=== PATIENT | female | born 1965 | race Caucasian/White ===

== ENCOUNTER → 2017-02-14 | Outpatient (CLI) | payer BC ==
--- NOTE | 2017-02-15 08:44 | WWPN ---
DATE OF ADMISSION: 02/14/2017 CHIEF COMPLAINT: Pelvic pain with intercourse since 10/28. HPI: This is a 51-year-old G4, P3-0-1-3 with an LMP of 1995. She is status post vaginal hysterectomy for benign reasons. She states she has been having pelvic pain with intercourse since 10/2016. She states it mostly centrally located and is not only with deep penetration but with shallow penetration as well. She says this feels different than just been dry. She says there is a lot of pressure and feels like he cannot go any further and they typically have to stop with sexual activity. She did try a lubricant without improvement. She states she usually does not have pelvic pain when she is not being sexually active. She is also complaining of worsening hot flashes over the past year. She has had hot flashes for a few years but they have gotten much worse recently. She has tried taking magnesium to see if this helps but there has been minimal improvement. She does get up frequently at night because of hot flashes and night sweats and this is causing some problems for her because she is not sleeping well. REVIEW OF SYSTEMS: She denies respiratory, cardiac, or GI problems. She also denies any urinary tract infection symptoms. She occasionally does have a small amount of leakage when she coughs. This is not new for her. PHYSICAL EXAM: Blood pressure 113/66. Height 5 feet 1 inch. Weight 150 pounds. Temperature 96.3, pulse 94. This is a well-developed, well-nourished white female who is alert and oriented x3 in no acute distress. CHEST AND LUNGS: Clear to auscultation. HEART: Regular rhythm. ABDOMEN: Soft, nontender, without palpable masses. PELVIC EXAM: Normal external genitalia with no significant atrophy. Vagina appears normal. No unusual vaginal discharge. There is no evidence of prolapse. Bimanual exam: There is moderate left adnexal tenderness with deep palpation. There is mild mid pelvic tenderness and no significant right pelvic tenderness. There are no palpable pelvic masses. IMPRESSION: 1. 51-year-old perimenopausal female with three month history of dyspareunia. She does have tenderness greatest on the left side, without palpable mass. 2. Worsening vasomotor symptoms probably due to the menopausal change. 3. She is status post vaginal hysterectomy for benign reasons. PLAN: 1. The patient will be scheduled for a pelvic ultrasound. 2. We have also had a long discussion regarding her worsening vasomotor symptoms associated with menopause change. We discussed various options, including low-dose ERT, SSRI treatment, clonidine treatment and [id number] supplements. She would like a trial of ERT. We have discussed the [facility] study findings including the possible increased risk for stroke and blood clots. A prescription for Estrace 0.5 mg tablets which she will take 1 daily. She will wait until after evaluation with her ultrasound first and then begin the ERT at that time. 3. She will return in August for her annual examination and p.r.n.
== END ==
LOC: WWCWWP 14:02
PROVIDERS: ATTEND Obstetrics & Gynecology

== ENCOUNTER → 2017-03-03 | Outpatient (CLI) | payer BC ==
--- NOTE | 2017-03-03 18:48 | US ---
EXAMINATION TYPE: US pelvic complete DATE OF EXAM: 03/03/2017 5:26 PM COMPARISON: NONE CLINICAL HISTORY: Dyspareunia N94.1. Dyspareunia x 4 months, pt had hysterectomy at age 26 TECHNIQUE: Transabdominal (TA) Date of LMP: age 26 EXAM MEASUREMENTS: Uterus: Surgically absent cm Endometrial Stripe: Surgically absent cm Right Ovary: 1.9 x 1.6 x 1.4 cm Left Ovary: 2.7 x 2.3 x 2.3 cm Pt stated bladder felt full, did not want TV at this time 1. Uterus: Surgically absent 2. Endometrium: Surgically absent 3. Right Ovary: wnl 4. Left Ovary: wnl 5. Bilateral Adnexa: wnl 6. Posterior cul-de-sac: wnl No abnormality visualized to account for pt's symptoms, alot of bowel within pelvis causing shadowi ng IMPRESSION: No free fluid. No evidence of solid or cystic pelvic mass.
== END | disposition home or self-care (01) ==
LOC: RADUSWWP 16:23
PROVIDERS: ATTEND Obstetrics & Gynecology
DX: N94.10 Unspecified dyspareunia (principal); R10.2 Pelvic and perineal pain
CPT/HCPCS: 76856

== ENCOUNTER → 2017-05-19 | Outpatient (CLI) | payer BC ==
--- NOTE | 2017-05-19 15:40 | US ---
EXAMINATION TYPE: US transvaginal DATE OF EXAM: 05/19/2017 COMPARISON: Previous study dated 03/03/2017. CLINICAL HISTORY: N94.1 Dyspareunia. hysterectomy at 32 years of age, LLQ pain TECHNIQUE: Transvaginal (TV) Date of LMP: at age 32 EXAM MEASUREMENTS: Uterus: Surgically absent cm Endometrial Stripe: Surgically absent cm Right Ovary: 3.3 x 1.4 x 2.9 cm Left Ovary: 2.8 x 1.6 x 2.3 cm 1. Uterus: Surgically absent 2. Endometrium: Surgically absent 3. Right Ovary: wnl 4. Left Ovary: wnl 5. Bilateral Adnexa: wnl 6. Posterior cul-de-sac: no free fluid IMPRESSION: NORMAL POSTHYSTERECTOMY PELVIS.
== END | disposition home or self-care (01) ==
LOC: RADUSWWP 14:58
PROVIDERS: ATTEND Obstetrics & Gynecology
DX: N94.10 Unspecified dyspareunia (principal); Z90.710 Acquired absence of both cervix and uterus
CPT/HCPCS: 76830

== ENCOUNTER → 2018-06-16 | Outpatient (CLI) | payer BC ==
[2018-06-16 16:48] LABS: Rheumatoid Factor 6 IU/mL (0-15)
--- NOTE | 2018-06-16 20:12 | XR ---
EXAMINATION TYPE: XR hand complete bilateral DATE OF EXAM: 06/16/2018 COMPARISON: None HISTORY: Pain TECHNIQUE: Three-view left hand FINDINGS: No acute fractures are evident. Joint spaces are preserved. Soft tissues are normal. IMPRESSION: 1. Normal three-view left hand. 2. Follow-up exam can be performed 7-10 days from acute trauma for.
[2018-06-16 21:22] LABS: Anti-DNA, DS unit <1.0 IU/mL; DNA Double-Stranded NEGATIVE (NEGATIVE)
[2018-06-18 09:45] LABS: HLA B27 NEGATIVE
== END | disposition home or self-care (01) ==
LOC: LABWHC1 10:07
PROVIDERS: ATTEND Family Medicine
DX: M79.641 Pain in right hand (principal); M79.642 Pain in left hand; M06.9 Rheumatoid arthritis, unspecified; M54.2 Cervicalgia
CPT/HCPCS: 36415; 85652; 86038; 86225; 86431; 86812

== ENCOUNTER → 2019-07-25 | Outpatient (CLI) | payer BC ==
--- NOTE | 2019-07-25 11:13 | XR ---
EXAMINATION TYPE: XR Hip Bilateral Complete DATE OF EXAM: 07/25/2019 CLINICAL HISTORY: Bilateral hip pain. TECHNIQUE: AP and frogleg views of the bilateral hips are obtained. COMPARISON: None. FINDINGS: There is no acute fracture/dislocation evident in either hip. The joint space in the bila teral hips appears symmetric and felt within normal limits. Scattered pelvic phleboliths are present bilaterally. There may be some asymmetric right sacroiliac joint narrowing and sclerosis, correlate c linically for sacroiliitis. IMPRESSION: As above.
== END | disposition home or self-care (01) ==
LOC: LABWHC1 09:15
PROVIDERS: ATTEND Family Medicine
DX: I87.8 Other specified disorders of veins (principal)
CPT/HCPCS: 73521

== ENCOUNTER → 2019-08-22 | Outpatient (CLI) | payer BC ==
--- NOTE | 2019-08-22 13:11 | MR ---
EXAMINATION TYPE: MR lumbar spine wo con DATE OF EXAM: 08/22/2019 COMPARISON: NONE HISTORY: Pain radiating into hips and legs TECHNIQUE: Multiplanar, multisequence imaging of the lumbar spine is performed without IV contrast. FINDINGS: Sagittal images of the lumbar spine show vertebral body heights to appear satisfactory. Sli ght grade 1 anterolisthesis L4 on L5. The multilevel disc desiccation with relative sparing of L1-L2 and L3-L4 levels as there is mild disc space narrowing L2-L3 and L4-L5 level noted. The conus medull efra is normal in position and signal ending mid L1 level. Several scattered Schmorl nodes in the upp er sacrum with largest noted at S2 level sagittal image 6 measuring 1.8 cm long axis. Mild multilevel anterior spurring. The bone marrow signal intensity is within normal limits. Axial images show the T12-L1 and L1-L2 levels to appear within normal limits. Axial images at the L2-L3 level show mild broad disc bulge with right lateral disc protrusion compone nt effacing intrathecal sac and causing mild to moderate right-sided anterior inferior neural foramin al narrowing. Axial images at the L3-L4 level show mild facet degenerative changes bilaterally. Axial images at L4-L5 level show moderate to advanced facet degenerative changes and ligament flavum hypertrophy with spondylolisthesis and broad-based posterior disc protrusion minimally effacing anter ior thecal sac. There is [id number] bilaterally into inferior neural foraminal narrowing. Axial images at the L5-S1 level show moderate facet degenerative changes bilaterally. There is centra l disc protrusion with spinal canal is preserved. Bilateral neural foramina are patent. No suspicious incidental retroperitoneal findings are seen. IMPRESSION: Multilevel degenerative changes in the lumbar spine most prominent at L4-L5 level as deta iled above.
== END | disposition home or self-care (01) ==
LOC: RADMRIMAIN 09:12
PROVIDERS: ATTEND Family Medicine
DX: M48.061 Spinal stenosis, lumbar region without neurogenic claudication (principal); M99.73 Connective tissue and disc stenosis of intervertebral foramina of lumbar region; M43.16 Spondylolisthesis, lumbar region; M51.26 Other intervertebral disc displacement, lumbar region; M47.816 Spondylosis without myelopathy or radiculopathy, lumbar region
CPT/HCPCS: 72148

== ENCOUNTER → 2020-04-27 | Outpatient (CLI) | payer BC ==
--- NOTE | 2020-04-28 11:58 | MM ---
Reason for exam: screening (asymptomatic). Last mammogram was performed 3 years and 8 months ago. History: Patient history of other cancer. Family history of breast cancer in maternal cousin at age 40. Cyst aspiration of the left breast, 2014. Taking estrogen for 2 years. Taking progesterone for 2 years. Physical Findings: A clinical breast exam by your physician is recommended on an annual basis and results should be correlated with mammographic findings. MG Screening Mammo w CAD Bilateral CC and MLO view(s) were taken. Prior study comparison: August 30, 2016, bilateral MG diagnostic mammo w CAD [facility]. August 24, 2015, bilateral MG diagnostic mammo w CAD [facility]. The breast tissue is heterogeneously dense. This may lower the sensitivity of mammography. Focal asymmetry lower left MLO view. ASSESSMENT: Incomplete: need additional imaging evaluation, BI-RAD 0 RECOMMENDATION: Special view mammogram of the left breast. If lesion persists on supplemental views, image directed ultrasound is recommended. [facility] will attempt to contact patient to return for supplemental views and ultrasound if indicated.
== END | disposition home or self-care (01) ==
LOC: RADMAMWWP 07:25
PROVIDERS: ATTEND Family Medicine
DX: Z12.31 Encounter for screening mammogram for malignant neoplasm of breast (principal); Z80.3 Family history of malignant neoplasm of breast
CPT/HCPCS: 77067

== ENCOUNTER → 2020-05-01 | Outpatient (CLI) | payer BC ==
--- NOTE | 2020-05-04 08:23 | MM ---
Reason for exam: additional evaluation requested from abnormal screening. Last mammogram was performed less than 1 month ago. History: Patient history of other cancer. Family history of breast cancer in maternal cousin at age 40. Took hormonal contraceptives for 8 years. Taking estrogen for 2 years. Physical Findings: Nurse did not find any significant physical abnormalities on exam. MG Work Up Mamm w CAD LT Spot compression CC, spot compression MLO, and ML view(s) were taken of the left breast. Prior study comparison: April 27, 2020, bilateral MG screening mammo w CAD. August 30, 2016, bilateral MG diagnostic mammo w CAD [facility]. There is no discrete abnormality on compression. Asymmetric density on ML view. No significant new findings when compared with previous films. These results were verbally communicated with the patient and result sheet given to the patient on 05/01/20. ASSESSMENT: Probably benign, BI-RAD 3 RECOMMENDATION: Follow-up diagnostic mammogram of the left breast in 6 months.
== END | disposition home or self-care (01) ==
LOC: RADMAMWWP 09:01
PROVIDERS: ATTEND Family Medicine
DX: R92.8 Other abnormal and inconclusive findings on diagnostic imaging of breast (principal)
CPT/HCPCS: 77065

== ENCOUNTER → 2021-04-13 | Outpatient (CLI) | payer BC ==
--- NOTE | 2021-04-13 10:40 | MM ---
Reason for exam: additional evaluation requested from prior study. Last mammogram was performed 11 months ago. History: Patient history of other cancer. Family history of breast cancer in maternal cousin at age 40. Cyst aspiration of the left breast, 2013. Took hormonal contraceptives for 8 years. Taking estrogen for 2 years. Physical Findings: Nurse did not find any significant physical abnormalities on exam. MG Diagnostic Mammo w CAD [facility] Bilateral CC and MLO view(s) were taken. Spot compression MLO and LM view(s) were taken of the left breast. Prior study comparison: May 01, 2020, left breast MG work up mamm w CAD LT. April 27, 2020, bilateral MG screening mammo w CAD. The breast tissue is heterogeneously dense. This may lower the sensitivity of mammography. No significant new findings when compared with previous films. These results were verbally communicated with the patient and result sheet given to the patient on 04/13/21. ASSESSMENT: Probably benign, BI-RAD 3 RECOMMENDATION: Follow-up diagnostic mammogram of the left breast in 6 months.
== END | disposition home or self-care (01) ==
LOC: RADMAMWWP 09:00
PROVIDERS: ATTEND Family Medicine
DX: R92.2 Inconclusive mammogram (principal); Z80.3 Family history of malignant neoplasm of breast
CPT/HCPCS: 77066

== ENCOUNTER → 2021-10-19 | Outpatient (CLI) | payer BC ==
[2021-10-19 19:15] LABS: LDL Cholesterol,Calculated 153.9 mg/dL (0.0-131.0); VLDL Calculation 15.26 mg/dL (5.00-40.00)
== END | disposition home or self-care (01) ==
LOC: LABWHC1 11:12
PROVIDERS: ATTEND Internal Medicine
DX: E78.5 Hyperlipidemia, unspecified (principal)
CPT/HCPCS: 36415; 80061

== ENCOUNTER → 2022-05-25 | Outpatient (CLI) | payer BC ==
--- NOTE | 2022-05-25 10:34 | XR ---
EXAMINATION TYPE: XR cervical spine comp DATE OF EXAM: 05/25/2022 TECHNIQUE: Frontal, lateral, oblique, swimmers, and open mouth view of the cervical spine are obtaine d. HISTORY: R07.0 NECK PAIN arthritis. COMPARISON: Cervical spine x-ray 2013 FINDINGS: The cervical spine is visualized in its entirety from C1 thru the top of T1 level, it is s table and straightened in alignment without evidence of acute fracture or dislocation. The pre-verte bral soft tissue appears within normal limits. The C1-C2 articulation is within normal limits on the open mouth view. Vertebral body heights are maintained. Mild to moderate spurring and disc space na rrowing C5-C6 and C6-C7 levels is slightly more prominent from 2013 study. The oblique images are wit hin normal limits. Overlying soft tissue is unremarkable. IMPRESSION: As above.
--- NOTE | 2022-05-26 07:59 | MM ---
Reason for Exam: Screening (asymptomatic). Last mammogram was performed 1 year(s) and 1 month(s) ago. Patient History: Menarche at age 13. First Full-Term at age 18. Hysterectomy at age 32. Postmenopausal. Other cancer. Patient used Estrogen for 2 years. Patient used Hormonal Contraceptives for 8 years. 2013, Cyst Aspiration on the Left side. Maternal cousin had breast cancer, age 40. Risk Values: Neyda 5 year model risk: 0.8%. NCI Lifetime model risk: 6.0%. Prior Study Comparison: 04/27/2020 Bilateral Screening Mammogram, [facility]. 05/01/2020 Left Diagnostic Mammogram, [facility]. 04/13/2021 Bilateral Diagnostic Mammogram, [facility]. Tissue Density: The breast tissue is heterogeneously dense. This may lower the sensitivity of mammography. Findings: Analyzed By CAD. There is no suspicious group of microcalcifications or new suspicious mass in either breast. Overall Assessment: Negative, BI-RAD 1 Management: Screening Mammogram of both breasts in 1 year. A clinical breast exam by your physician is recommended on an annual basis and results should be correlated with mammographic findings. Electronically signed and approved by: Jarrod Hooker M.D. Radiologis
== END | disposition home or self-care (01) ==
LOC: RADMAMWWP 10:00
PROVIDERS: ATTEND Family Medicine
DX: Z12.31 Encounter for screening mammogram for malignant neoplasm of breast (principal); M50.323 Other cervical disc degeneration at C6-C7 level; Z80.3 Family history of malignant neoplasm of breast
CPT/HCPCS: 72050; 77067

== ENCOUNTER → 2023-02-20 | Outpatient (CLI) | payer BC ==
--- NOTE | 2023-02-20 21:53 | CT ---
EXAMINATION TYPE: CT sinus wo con DATE OF EXAM: 02/20/2023 COMPARISON: None HISTORY: Sinusitis CT DLP: 622.3 mGycm CONTRAST: 0 mL of Isovue 300 The paranasal sinuses are examined in the axial plane at 2 mm thick sections. Reconstructed images i n the coronal plane were obtained. The maxillary sinuses are clear. There may be some debris within posterior right residual ethmoid ai r cells. Significant mucosal thickening is not evident. No suspicious air-fluid levels are present. The sphenoid sinuses are clear. The frontal sinuses are clear. The septum is evaluated. There is septal deviation to the left. There is been prior uncinectomies. IMPRESSIONS: 1. Postsurgical changes with prior uncinectomies and ethmoidectomies. No suspicious changes to sugge st acute or chronic sinusitis. 2. Left septal deviation. 3. There may be some debris within posterior right residual ethmoid air cells.
== END | disposition home or self-care (01) ==
LOC: RADCTMAIN 11:29
PROVIDERS: ATTEND Otolaryngology
DX: J32.9 Chronic sinusitis, unspecified (principal); J34.2 Deviated nasal septum; Z98.890 Other specified postprocedural states
CPT/HCPCS: 70486

== ENCOUNTER → 2023-11-30 | Outpatient (CLI) | payer BC ==
--- NOTE | 2023-12-01 20:22 | MM ---
Reason for Exam: Screening (asymptomatic). Last mammogram was performed 1 year(s) and 6 month(s) ago. Patient History: Menarche at age 13. First Full-Term at age 18. Hysterectomy at age 32. Postmenopausal. Other cancer. Patient used Estrogen for 2 years. Patient used Hormonal Contraceptives for 8 years. 2013, Cyst Aspiration on the Left side. Maternal cousin had breast cancer, age 40. Risk Values: Neyda 5 year model risk: 0.9%. NCI Lifetime model risk: 5.7%. Prior Study Comparison: 05/01/2020 Left Diagnostic Mammogram, [facility]. 04/13/2021 Bilateral Diagnostic Mammogram, [facility]. 05/25/2022 Bilateral MG screening mammo w CAD, [facility]. Tissue Density: The breast tissue is heterogeneously dense. This may lower the sensitivity of mammography. Findings: Analyzed By CAD. There is no suspicious group of microcalcifications or new suspicious mass in either breast. Overall Assessment: Negative, BI-RAD 1 Management: Screening Mammogram of both breasts in 1 year. . Patient should continue monthly self-breast exams. A clinical breast exam by your physician is recommended on an annual basis. This exam should not preclude additional follow-up of suspicious palpable abnormalities. Note on Neyda scores and lifetime risk: 1. A Neyda score greater than 3% is considered moderate risk. If this is the case, consider specialist referral to assess eligibility for a risk reducing agent. 2. If overall lifetime risk for the development of breast cancer is 20% or higher, the patient may qualify for future screening with alternating mammogram and breast MRI. Electronically signed and approved by: Mini Hurtado M.D. Radiologist
== END | disposition home or self-care (01) ==
LOC: RADMAMWWP 14:19
PROVIDERS: ATTEND Family Medicine
DX: Z12.31 Encounter for screening mammogram for malignant neoplasm of breast (principal); Z80.3 Family history of malignant neoplasm of breast; Z78.0 Asymptomatic menopausal state
CPT/HCPCS: 77067

== ENCOUNTER → 2024-08-12 | Outpatient (CLI) | payer BC ==
--- NOTE | 2024-08-12 19:02 | MR ---
EXAMINATION TYPE: MR cervical spine wo con DATE OF EXAM: 08/12/2024 5:53 PM CLINICAL INDICATION: Female, 58 years old with history of M54.12 RADICULOPATHY CERVICAL; PHH, Neck pa n, numbness and tingling in BUE, headaches. COMPARISON: None. TECHNIQUE: Multi planar, multi sequence imaging was performed utilizing: T1-weighted, T2-weighted, an d turbo inversion recovery imaging of the cervical spine. IV Contrast: cc (none if empty) FINDINGS: Alignment: The cervical vertebral bodies have preserved heights. Alignment is within normal limits gi ag patient positioning. Bones: Bone signal is within normal limits. No abnormal bone marrow edema on inversion recovery seque nces. Cord: The spinal cord is unremarkable with regards to their signal intensity and morphology. Discs: Intervertebral disc signal is maintained. C2-C3: No significant disc pathology. The spinal canal is patent. No neural foraminal stenosis. C3-C4: No significant disc pathology. The spinal canal is patent. No neural foraminal stenosis. C4-C5: No significant disc pathology. The spinal canal is patent. Bilateral facet and uncovertebral joint arthropathy are present with mild left and moderate right neural foraminal stenosis. C5-C6: No significant disc pathology. The spinal canal is patent. Bilateral facet and uncovertebral joint arthropathy are present with mild bilateral neural foraminal stenosis. C6-C7: A disc osteophyte complex is present with mild spinal canal stenosis. Bilateral facet and unc overtebral joint arthropathy are present with moderate left neural foraminal stenosis. C7-T1: No significant disc pathology. The spinal canal is patent. No neural foraminal stenosis. Other: None. IMPRESSION: 1. No evidence for disc herniation or significant spinal canal stenosis. 2. Mild disc degeneration with associated osteoarthritic changes. No femoral stenosis worse at C4-C5 with moderate right and moderate left C6-C7 stenosis. [facility], Workstation: [id number], 08/12/2024 7:00 PM
== END | disposition home or self-care (01) ==
LOC: RADMRIMAIN 17:14
PROVIDERS: ATTEND Orthopaedic Surgery
DX: M54.12 Radiculopathy, cervical region
CPT/HCPCS: 72141

== ENCOUNTER → 2024-09-12 | Outpatient (CLI) | payer BC | END | disposition home or self-care (01) | LOC: LABWHC1 12:26 | PROVIDERS: ATTEND Physician Assistant | DX: M25.572 Pain in left ankle and joints of left foot (principal); M79.662 Pain in left lower leg; S92.245D Nondisplaced fracture of medial cuneiform of left foot, subsequent encounter for fracture with routine healing; S93.402D Sprain of unspecified ligament of left ankle, subsequent encounter; S82.392A Other fracture of lower end of left tibia, initial encounter for closed fracture; S82.435D Nondisplaced oblique fracture of shaft of left fibula, subsequent encounter for closed fracture with routine healing | CPT/HCPCS: 36415; 82306 ==

== ENCOUNTER → 2024-12-04 | Outpatient (CLI) | payer BC ==
--- NOTE | 2024-12-04 17:40 | MM ---
Reason for Exam: Screening (asymptomatic). Last screening mammogram was performed 12 month(s) ago. Patient History: Menarche at age 13. First Full-Term at age 18. Hysterectomy at age 32. Postmenopausal. Patient has history of breast feeding. Other cancer. Currently using Estrogen, for 2 years. Patient used Hormonal Contraceptives for 8 years. 2013, Cyst Aspiration on the Left side. Maternal cousin had breast cancer, age 40. Risk Values: Neyda 5 year model risk: 1.0%. NCI Lifetime model risk: 5.6%. Prior Study Comparison: 04/13/2021 Bilateral Diagnostic Mammogram, [facility]. 05/25/2022 Bilateral MG screening mammo w CAD, [facility]. 11/30/2023 Bilateral MG screening mammo w CAD, [facility]. Tissue Density: The breasts are heterogeneously dense, which may obscure small masses. Findings: Analyzed By CAD. Asymmetric density, possible obscured distortion central outer right cc view middle depth. Findings may represent superimposition shadow but further spot compression is recommended. Otherwise, no significant change. Overall Assessment: Incomplete: need additional imaging evaluation, BI-RAD 0 Management: Special View Mammogram of the right breast. Include spot 3-D CC, 3-D cc rolled, and 3-D ML views. [facility] will attempt to contact patient to return for supplemental views and ultrasound if indicated. [facility], , 12/04/2024 5:37 PM. Electronically signed and approved by: Mini Hurtado M.D. Radiologist
== END | disposition home or self-care (01) ==
LOC: RADMAMWWP 15:39
PROVIDERS: ATTEND Family Medicine
DX: Z12.31 Encounter for screening mammogram for malignant neoplasm of breast (principal); Z78.0 Asymptomatic menopausal state; Z80.3 Family history of malignant neoplasm of breast; R92.333 Mammographic heterogeneous density, bilateral breasts
CPT/HCPCS: 77067

== ENCOUNTER → 2025-03-12 | Outpatient (CLI) | payer BC ==
--- NOTE | 2025-03-12 08:43 | US ---
EXAMINATION TYPE: US abdomen complete DATE OF EXAM: 03/12/2025 COMPARISON: NONE CLINICAL INDICATION: Female, 59 years old with history of R10.11 RUQ PAIN; RUQ pain. TECHNIQUE: Grayscale and color Doppler imaging of the abdomen was performed. FINDINGS: EXAM MEASUREMENTS: Liver Length: 13.6 cm Gallbladder Wall: 0.2 cm CBD: 0.4 cm, color Doppler imaging was utilized to isolate the common bile duct for measurement. Spleen: 8.7 cm Right Kidney: 11.2 x 4.7 x 3.9 cm Left Kidney: 11.1 x 4.4 x 4.2 cm Pancreas: Tail obscured by overlying bowel gas Liver: Slightly attenuating appearance. No dilated ducts, masses or cysts. Gallbladder: Possible stone - 0.6 cm. Internal echoes seen when turned LLD. No abnormal distentio n or wall thickening. Evidence for sonographic Uribe's sign: neg CBD: wnl Spleen: wnl Right Kidney: wnl, No hydronephrosis, calculi or masses seen Left Kidney: wnl, No hydronephrosis, calculi or masses seen Upper IVC: wnl Abd Aorta: No AAA visualized at time of scan IMPRESSION: 1. Suspect mild hepatic steatosis. Correlate with LFTs, lipid profile, and patient risk factors. 2. Underlying 6 mm gallstone and some gallbladder debris. 3. No ancillary imaging findings of acute cholecystitis. No biliary ductal dilatation. [facility], Workstation: [email or web address], 03/12/2025 8:41 AM
== END | disposition home or self-care (01) ==
LOC: RADUSWWP 07:38
PROVIDERS: ATTEND Emergency Medicine
DX: K80.20 Calculus of gallbladder without cholecystitis without obstruction (principal)
CPT/HCPCS: 76700